=== PATIENT | male | born 1945 | race Two or more races ===

== ENCOUNTER 2016-04-23 15:57 | Outpatient (CLI) | payer MEDICARE, OTHER | END 2016-04-23 15:58 | disposition home or self-care (01) | LOC: NC 15:57 | PROVIDERS: ATTEND Internal Medicine | DX: E11.9 Type 2 diabetes mellitus without complications (principal); Z71.3 Dietary counseling and surveillance; E78.00 Pure hypercholesterolemia, unspecified; I10 Essential (primary) hypertension; Z87.891 Personal history of nicotine dependence ==